=== PATIENT | female | born 1950 | race Caucasian/White ===

== ENCOUNTER 2017-01-10 15:06 | Emergency (ER) | payer MEDICARE, OTHER ==
[~2017-01-10] VITALS: Ht 165.1 cm; Wt 87.5 kg
[~2017-01-10 15:06] MED LIST: ERGO1CAP6 PO; GEMF600T3 PO; GLIP-115 PO; LEVO25TA6 PO; LOSA25TA9 PO; OMEG1CAP10 PO
[2017-01-10 15:50] VITALS: BP 184/86
== END 2017-01-10 22:00 | disposition left against medical advice (07) ==
LOC: ER 15:06
DX: R05 Cough (principal); Z53.21 Procedure and treatment not carried out due to patient leaving prior to being seen by health care provider
CPT/HCPCS: 71020; 93005

== ENCOUNTER → 2017-01-20 | Outpatient (CLI) | payer MEDICARE, OTHER ==
[2017-01-20 12:51] LABS: Basophils # (auto) 0 uL; Basophils % (auto) 0.5 % (0.0-2.0); DEFINITIVE VIEW TRANSMISSION; Eosinophils # (auto) 0.1 uL; Eosinophils % (auto) 1.7 % (0.0-7.0); Hematocrit 42.5 % (36.0-46.0); Hemoglobin 13.9 g/dL (12.2-16.2); Lymphocytes # (auto) 2.3 uL; Lymphocytes % (auto) 34.4 % (10.0-50.0); Mean Corpuscular Hemoglobin 25.4 pg (28.0-32.0); Mean Corpuscular Hgb Conc. 32.6 g/dL (32.0-36.0); Mean Corpuscular Volume 77.8 fL (80.0-100.0); Mean Platelet Volume 8.4 fL (7.4-10.4); Monocytes # (auto) 0.4 uL; Monocytes % (auto) 5.7 % (0.0-12.0); Neutrophils # (auto) 3.9 uL; Neutrophils % (auto) 57.7 % (37.0-80.0); Platelet Count (auto) 335 10^3/uL (140-450); Red Cell Distribution Width 13.8 % (11.6-16.0); White Blood Cell 6.7 10^3/uL (4.4-10.8)
[2017-01-20 13:17] LABS: BUN/Creatinine Ratio 19.5; Bilirubin, Total 0.4 mg/dL (0.2-1.0); Calcium 10.2 mg/dL (8.5-10.1); Potassium 4.3 mmol/L (3.5-5.1); Total Protein 8.5 g/dL (6.4-8.2)
== END | disposition home or self-care (01) ==
LOC: LAB 12:20
PROVIDERS: ATTEND Internal Medicine
DX: R10.9 Unspecified abdominal pain (principal)
CPT/HCPCS: 36415; 80053; 82150; 82607; 83036; 83690; 84439; 84443; 85025; 86141

== ENCOUNTER → 2017-09-12 | Outpatient (CLI) | payer MEDICARE, OTHER | END | disposition home or self-care (01) | LOC: XY 07:56 | PROVIDERS: ATTEND Internal Medicine | DX: R10.9 Unspecified abdominal pain (principal); R11.2 Nausea with vomiting, unspecified | CPT/HCPCS: 78264; A9541 ==

== ENCOUNTER 2017-10-13 09:41 | Inpatient (IN) | payer OTHER ==
[~2017-10-13] VITALS: Ht 165.1 cm; Wt 90.6 kg
[2017-10-13 10:34] LABS: Basophils # (auto) 0.1 uL; Eosinophils # (auto) 0 uL; Monocytes # (auto) 0.3 uL; Nucleated Red Blood Cells % 0.1 %; Platelet Count (auto) 310 10^3/uL (140-450)
[2017-10-13 10:38] LABS: Basophils % (auto) 1.2 % (0.0-2.0); Eosinophils % (auto) 0.4 % (0.0-7.0); Hematocrit 41.4 % (36.0-46.0); Hemoglobin 13.5 g/dL (12.2-16.2); Lymphocytes # (auto) 1.8 uL; Lymphocytes % (auto) 25.3 % (10.0-50.0); Mean Corpuscular Hemoglobin 25.6 pg (28.0-32.0); Mean Corpuscular Hgb Conc. 32.6 g/dL (32.0-36.0); Mean Corpuscular Volume 78.4 fL (80.0-100.0); Monocytes % (auto) 4.5 % (0.0-12.0); Neutrophils # (auto) 4.9 uL; Neutrophils % (auto) 68.6 % (37.0-80.0); Red Blood Cells 5.28 10^6/uL (4.0-5.20); Red Cell Distribution Width 13.5 % (11.8-14.3); White Blood Cell 7.2 10^3/uL (4.4-10.8)
[2017-10-13 10:59] LABS: Alanine Aminotransferase 31 U/L (13-56); Albumin 4.2 g/dL (3.4-5.0); Alkaline Phosphatase 79 U/L (45-117); Anion Gap 11 (5-15); Aspartate Aminotransferase 13 U/L (15-37); BUN/Creatinine Ratio 14.6; Bilirubin, Total 0.5 mg/dL (0.2-1.0); Blood Urea Nitrogen 18 mg/dL (7-18); Calcium 9.4 mg/dL (8.5-10.1); Carbon Dioxide 21 mmol/L (21-32); Chloride 104 mmol/L (98-107); GFR African American 56 mL/min; GFR Non-African American 46 mL/min; Glucose 303 mg/dL (74-106); Potassium 3.9 mmol/L (3.5-5.1); Sodium 136 mmol/L (136-145); Total Protein 8.7 g/dL (6.4-8.2)
[2017-10-13] MEDS ORDERED: SODIUM CHLORIDE 0.9% 1,000 ML IV ONE (11:24)
[2017-10-13] MEDS ORDERED: InsuLIN REG 1unit/0.01ml Soln (100units/ml) IV ONE (11:30)
[2017-10-13 12:06] LABS: Amylase 13 U/L (25-115); Lipase 127 U/L (73-393)
[2017-10-13] MEDS ORDERED: NITROGLYCERIN 0.4 MG SL TAB SL PRN (15:15)
[2017-10-13] MEDS ORDERED: PROMETHAZINE HCL 25 MG/ML 1ML IV PRN (15:15)
[2017-10-13] MEDS ORDERED: MORPHINE SULFATE 10 MG/ML INJ 1ML SDV IV PRN ×2 (15:15)
[2017-10-13] MEDS ORDERED: cefTRIAXone 1GM/10ml IVPUSH 10 ML IV ONE (15:15)
[2017-10-13] MEDS ORDERED: LORazepam 0.5 MG TAB PO PRN (15:15)
[2017-10-13] MEDS ORDERED: TEMAZEPAM 15 MG CAP PO PRN (15:15)
[2017-10-13] MEDS ORDERED: ACETAMINOPHEN 500 MG TAB PO PRN (15:15)
[2017-10-13] MEDS ORDERED: DEXTROSE (50%) 50ML SYRG IV PRN (15:15)
[2017-10-13] MEDS ORDERED: ONDANSETRON HCL 4 MG/2 ML VIAL IV ONE (16:15)
[2017-10-13] MEDS ORDERED: AMLO10TA2 PO (16:46)
[2017-10-13] MEDS ORDERED: GLIP-116 PO (16:46)
[2017-10-13] MEDS ORDERED: RANI150C11 PO (16:46)
[2017-10-13] MEDS ORDERED: LOSA100T27 PO (16:46)
[2017-10-13] MEDS ORDERED: ASPI-231 PO (16:46)
[2017-10-13] MEDS ORDERED: ESOM40CA39 PO (16:46)
[2017-10-13] MEDS ORDERED: DOCU-80 PO (16:46)
[2017-10-13] MEDS: GEMFIBROZIL 600 MG TAB PO SCH (17:00)
[2017-10-13] MEDS ORDERED: LOSARTAN POTASSIUM 50 MG TAB PO ONE (17:15)
[2017-10-13] MEDS: InsuLIN REG 1unit/0.01ml Soln (100units/ml) SC SCH ×2 (17:22→20:00)
[2017-10-13] MEDS: SODIUM CHLORIDE 0.9% 1,000 ML IV SCH (17:22)
[2017-10-13] MEDS: FAMOTIDINE (10MG/ML) 2ML VL IV SCH (17:22)
[2017-10-13] MEDS: glipiZIDE 5 MG TAB PO SCH (17:23)
[2017-10-13] MEDS: ACCU-CHEK COMFORT CURVE STRIP VI SCH ×2 (17:23→20:00)
[2017-10-13] MEDS: OMEGA ACID ETHYL ESTERS PO SCH (17:46)
[2017-10-13 20:28] VITALS: BP 144/69
[2017-10-13] MEDS: HYDROcodone-ACET 5/325MG TAB PO PRN (23:41)
[2017-10-14] MEDS: ACCU-CHEK COMFORT CURVE STRIP VI SCH ×6 (00:05→20:10)
[2017-10-14] MEDS: InsuLIN REG 1unit/0.01ml Soln (100units/ml) SC SCH ×6 (00:15→20:11)
[2017-10-14] MEDS: SODIUM CHLORIDE 0.9% 1,000 ML IV SCH ×3 (01:46→20:11)
[2017-10-14] MEDS: FAMOTIDINE (10MG/ML) 2ML VL IV SCH ×2 (04:05→16:44)
[2017-10-14 05:00] VITALS: BP 107/61
[2017-10-14 05:55] LABS: Eosinophils # (auto) 0.1 uL; Hemoglobin 12.1 g/dL (12.2-16.2); Mean Corpuscular Volume 78.5 fL (80.0-100.0); Monocytes # (auto) 0.4 uL; Nucleated Red Blood Cells % 0.1 %; Platelet Count (auto) 262 10^3/uL (140-450)
[2017-10-14 05:58] LABS: Basophils # (auto) 0 uL; Basophils % (auto) 0.6 % (0.0-2.0); Hematocrit 36.9 % (36.0-46.0); Lymphocytes # (auto) 2.3 uL; Lymphocytes % (auto) 32.8 % (10.0-50.0); Mean Corpuscular Hemoglobin 25.7 pg (28.0-32.0); Mean Corpuscular Hgb Conc. 32.8 g/dL (32.0-36.0); Monocytes % (auto) 6.1 % (0.0-12.0); Neutrophils # (auto) 4.2 uL; Neutrophils % (auto) 59.5 % (37.0-80.0); Red Blood Cells 4.71 10^6/uL (4.0-5.20); Red Cell Distribution Width 13.7 % (11.8-14.3); White Blood Cell 7.1 10^3/uL (4.4-10.8)
[2017-10-14 06:21] LABS: Potassium 3.5 mmol/L (3.5-5.1)
[2017-10-14 06:23] LABS: Cholesterol 245 mg/dL (< 200); HDL Cholesterol 27 mg/dL (40-59); LDL Cholesterol 178 mg/dL (< 100); Triglycerides 222 mg/dL (< 150)
[2017-10-14 06:26] LABS: Albumin 3.3 g/dL (3.4-5.0); BUN/Creatinine Ratio 14.4; Calcium 8.8 mg/dL (8.5-10.1)
[2017-10-14 06:28] LABS: Bilirubin, Total 0.3 mg/dL (0.2-1.0)
[2017-10-14] MEDS: LEVOTHYROXINE SODIUM 25 MCG TAB PO SCH (06:50)
[2017-10-14] MEDS: glipiZIDE 5 MG TAB PO SCH ×2 (06:50→16:51)
[2017-10-14] MEDS: GEMFIBROZIL 600 MG TAB PO SCH ×3 (06:50→17:00)
[2017-10-14 07:25] VITALS: BP 133/78
[2017-10-14] MEDS: OMEGA ACID ETHYL ESTERS PO SCH ×2 (08:00→18:00)
[2017-10-14] MEDS: cefTRIAXone 1GM/10ml IVPUSH 10 ML IV SCH (08:23)
[2017-10-14] MEDS: LOSARTAN POTASSIUM 50 MG TAB PO SCH (08:24)
[2017-10-14] MEDS: HYDROcodone-ACET 5/325MG TAB PO PRN (10:45)
[2017-10-14 11:50] VITALS: BP 138/85
[2017-10-14 16:40] VITALS: BP 134/81
[2017-10-14] MEDS: INSULIN 70/30 1unit/0.01ml Susp (100units/ml) SC SCH (18:00)
[2017-10-14 22:00] VITALS: BP 154/78
[2017-10-15] MEDS: ACCU-CHEK COMFORT CURVE STRIP VI SCH ×4 (00:04→12:23)
[2017-10-15] MEDS: FAMOTIDINE (10MG/ML) 2ML VL IV SCH ×2 (03:15→13:43)
[2017-10-15] MEDS: InsuLIN REG 1unit/0.01ml Soln (100units/ml) SC SCH ×4 (04:00→12:23)
[2017-10-15] MEDS: HYDROcodone-ACET 5/325MG TAB PO PRN (04:02)
[2017-10-15 05:00] VITALS: BP 141/70
[2017-10-15] MEDS: SODIUM CHLORIDE 0.9% 1,000 ML IV SCH ×2 (06:05→09:44)
[2017-10-15] MEDS: glipiZIDE 5 MG TAB PO SCH (06:05)
[2017-10-15] MEDS: GEMFIBROZIL 600 MG TAB PO SCH (06:05)
[2017-10-15] MEDS: LEVOTHYROXINE SODIUM 25 MCG TAB PO SCH (06:05)
[2017-10-15] MEDS ORDERED: ceFAZolin 1GM/50ML 50 ML IV ONE (07:51)
[2017-10-15 07:56] LABS: Basophils # (auto) 0.1 uL; Eosinophils # (auto) 0.1 uL; Eosinophils % (auto) 2.3 % (0.0-7.0); Lymphocytes # (auto) 2.1 uL; Monocytes # (auto) 0.3 uL; Nucleated Red Blood Cells % 0.1 %
[2017-10-15 07:59] LABS: Basophils % (auto) 0.8 % (0.0-2.0); Hematocrit 37.5 % (36.0-46.0); Hemoglobin 12.2 g/dL (12.2-16.2); Lymphocytes % (auto) 32.4 % (10.0-50.0); Mean Corpuscular Hemoglobin 25.5 pg (28.0-32.0); Mean Corpuscular Hgb Conc. 32.6 g/dL (32.0-36.0); Monocytes % (auto) 4.6 % (0.0-12.0); Neutrophils # (auto) 3.9 uL; Neutrophils % (auto) 59.9 % (37.0-80.0); Platelet Count (auto) 251 10^3/uL (140-450); Red Blood Cells 4.81 10^6/uL (4.0-5.20); Red Cell Distribution Width 13.4 % (11.8-14.3); White Blood Cell 6.5 10^3/uL (4.4-10.8)
[2017-10-15] MEDS: OMEGA ACID ETHYL ESTERS PO SCH (08:00)
[2017-10-15] MEDS ORDERED: SUCCINYLCHOLINE CHLORIDE 20 MG/ML 10ML VIAL IV ONE (08:01)
[2017-10-15] MEDS ORDERED: LIDOCAINE 1% HCL (LOCAL ANESTH.) INJ 20ML MDV ONE (08:01)
[2017-10-15] MEDS ORDERED: MIDAZOLAM HCL 1MG/1ML-2 ML VIAL ONE (08:04)
[2017-10-15] MEDS ORDERED: METOCLOPRAMIDE HCL 5MG/ml INJ 2ml VIAL ONE (08:04)
[2017-10-15] MEDS ORDERED: PROPOFOL 10 MG/ML 20 ML IV ONE (08:07)
[2017-10-15] MEDS ORDERED: diphenhdrAMINE HCL 50 MG/1 ML VL ONE (08:08)
[2017-10-15] MEDS ORDERED: KETAMINE HCL 1 ML ONE (08:08)
[2017-10-15 08:13] LABS: Calcium 8.8 mg/dL (8.5-10.1); Potassium 3.6 mmol/L (3.5-5.1)
[2017-10-15 08:16] LABS: BUN/Creatinine Ratio 13.9
[2017-10-15 09:00] VITALS: BP 146/81
[2017-10-15] MEDS ORDERED: hydrALAZINE HCL 20 MG/ML VL IV PRN (09:00)
[2017-10-15] MEDS ORDERED: ONDANSETRON HCL 4 MG/2 ML VIAL IV ONE (09:00)
[2017-10-15] MEDS ORDERED: NALOXONE HCL 0.4 MG/ML VIAL IV PRN (09:00)
[2017-10-15] MEDS ORDERED: ACCU-CHEK COMFORT CURVE STRIP VI ONE (09:00)
[2017-10-15] MEDS ORDERED: HYDROmorphone HCL 2 MG/ML VL IV PRN (09:00)
[2017-10-15] MEDS: INSULIN 70/30 1unit/0.01ml Susp (100units/ml) SC SCH (10:03)
[2017-10-15] MEDS: cefTRIAXone 1GM/10ml IVPUSH 10 ML IV SCH (10:04)
[2017-10-15] MEDS: LOSARTAN POTASSIUM 50 MG TAB PO SCH (10:05)
[2017-10-15 12:48] VITALS: BP 140/79
[2017-10-15 13:32] VITALS: BP 158/69
[2017-10-28] MEDS ORDERED: INSUINJ49 SC (15:24)
== END 2017-10-15 16:15 | disposition home or self-care (01) | DRG 694 ==
LOC: ER 09:41 → TELE 09:42 → TELE-WESTW 19:41
PROVIDERS: ADMIT Internal Medicine; ATTEND Family Medicine
PROC: 0T768DZ Dilation of Right Ureter with Intraluminal Device, Via Natural or Artificial Opening Endoscopic (ICD-10-PCS; principal; 2017-10-15 08:04)
DX: N13.2 Hydronephrosis with renal and ureteral calculous obstruction (principal); E11.65 Type 2 diabetes mellitus with hyperglycemia; K76.0 Fatty (change of) liver, not elsewhere classified; R16.0 Hepatomegaly, not elsewhere classified; K80.20 Calculus of gallbladder without cholecystitis without obstruction; I10 Essential (primary) hypertension; K40.20 Bilateral inguinal hernia, without obstruction or gangrene, not specified as recurrent; K42.9 Umbilical hernia without obstruction or gangrene; Z88.2 Allergy status to sulfonamides; Z82.3 Family history of stroke; Z82.49 Family history of ischemic heart disease and other diseases of the circulatory system; Z83.3 Family history of diabetes mellitus; Z85.3 Personal history of malignant neoplasm of breast; Z85.828 Personal history of other malignant neoplasm of skin; Z87.442 Personal history of urinary calculi; Z79.84 Long term (current) use of oral hypoglycemic drugs; Z90.12 Acquired absence of left breast and nipple; Z79.899 Other long term (current) drug therapy
CPT/HCPCS: 36415; 52332; 71045; 74018; 74176; 76000; 80048; 80053; 80061; 82150; 82962; 83036; 83690; 84484; 85025; 87086; 93005; 96361; 96374; 96375; J0330; J0690; J1815; J2001; J2250; J2405; J2704; J3490

== ENCOUNTER → 2017-10-19 | Outpatient (CLI) | payer OTHER ==
[~2017-10-19] MED LIST changes: +AMLO10TA2 PO; +ASPI-231 PO; +DOCU-80 PO; +ESOM40CA39 PO; -GEMF600T3 PO; -GLIP-115 PO; +GLIP-116 PO; +INSUINJ49 SC; +LOSA100T27 PO; -LOSA25TA9 PO; +RANI150C11 PO
[2017-10-19 16:45] LABS: Basophils # (auto) 0.1 uL; Basophils % (auto) 1.4 % (0.0-2.0); Hematocrit 40.9 % (36.0-46.0); Monocytes # (auto) 0.5 uL; Red Cell Distribution Width 13.7 % (11.8-14.3)
[2017-10-19 16:49] LABS: Albumin 4.1 g/dL (3.4-5.0); BUN/Creatinine Ratio 17.7; Bilirubin, Total 0.4 mg/dL (0.2-1.0); Calcium 9.4 mg/dL (8.5-10.1); Eosinophils # (auto) 0.3 uL; Eosinophils % (auto) 3.1 % (0.0-7.0); Hemoglobin 13.3 g/dL (12.2-16.2); Lymphocytes # (auto) 2.7 uL; Lymphocytes % (auto) 31.7 % (10.0-50.0); Mean Corpuscular Hemoglobin 25.5 pg (28.0-32.0); Mean Corpuscular Hgb Conc. 32.4 g/dL (32.0-36.0); Mean Corpuscular Volume 78.5 fL (80.0-100.0); Monocytes % (auto) 5.8 % (0.0-12.0); Platelet Count (auto) 321 10^3/uL (140-450); Potassium 3.8 mmol/L (3.5-5.1); Total Protein 8.5 g/dL (6.4-8.2); White Blood Cell 8.6 10^3/uL (4.4-10.8)
== END | disposition home or self-care (01) ==
LOC: LAB 15:57
PROVIDERS: ATTEND Internal Medicine
DX: E11.9 Type 2 diabetes mellitus without complications (principal); R10.9 Unspecified abdominal pain; Z96.0 Presence of urogenital implants
CPT/HCPCS: 36415; 80053; 85025; 87086

== ENCOUNTER 2017-10-31 06:04 | Day surgery (SDC) | payer OTHER ==
[2017-10-28 10:28] LABS: Basophils # (auto) 0.1 uL; Eosinophils # (auto) 0.2 uL; Monocytes # (auto) 0.4 uL; Nucleated Red Blood Cells % 0.1 %; Red Cell Distribution Width 13.6 % (11.8-14.3); White Blood Cell 6.8 10^3/uL (4.4-10.8)
[2017-10-28 10:29] LABS: Basophils % (auto) 1.2 % (0.0-2.0); Eosinophils % (auto) 2.9 % (0.0-7.0); Hematocrit 41.1 % (36.0-46.0); Hemoglobin 13.5 g/dL (12.2-16.2); Lymphocytes % (auto) 29.9 % (10.0-50.0); Mean Corpuscular Hemoglobin 25.8 pg (28.0-32.0); Mean Corpuscular Hgb Conc. 32.7 g/dL (32.0-36.0); Mean Corpuscular Volume 78.7 fL (80.0-100.0); Monocytes % (auto) 6.2 % (0.0-12.0); Neutrophils # (auto) 4.1 uL; Neutrophils % (auto) 59.8 % (37.0-80.0); Platelet Count (auto) 343 10^3/uL (140-450); Red Blood Cells 5.22 10^6/uL (4.0-5.20)
[2017-10-28 10:40] LABS: INR 0.92 (0.9-1.15); Partial Thromboplastin Time 25.5 sec (22.64-33.71)
[2017-10-28 10:47] LABS: Albumin 4.1 g/dL (3.4-5.0); BUN/Creatinine Ratio 15.7; Bilirubin, Total 0.4 mg/dL (0.2-1.0); Calcium 9.5 mg/dL (8.5-10.1); Potassium 4.1 mmol/L (3.5-5.1); Total Protein 8.6 g/dL (6.4-8.2)
[2017-10-28 10:53] LABS: Urine Bacteria FEW /hpf (None Seen); Urine Blood 3+ /uL (Negative); Urine Specific Gravity 1.017 (1.001-1.035); Urine WBC 54 /hpf (0 - 5)
[~2017-10-31] VITALS: Ht 165.1 cm; Wt 84.8 kg
[~2017-10-31 06:04] MED LIST changes: -ASPI-231 PO; -DOCU-80 PO; -ERGO1CAP6 PO; -ESOM40CA39 PO; -OMEG1CAP10 PO; -RANI150C11 PO
[2017-10-31] MEDS ORDERED: SODIUM CHLORIDE LOCK 10 ML ONE (07:18)
[2017-10-31] MEDS ORDERED: PROPOFOL 10 MG/ML 20 ML IV ONE ×2 (07:18→08:17)
[2017-10-31] MEDS ORDERED: MIDAZOLAM HCL 1MG/1ML-2 ML VIAL ONE (07:18)
[2017-10-31] MEDS ORDERED: fentaNYL CITRATE 100 MCG/2 ML VL ONE (07:18)
[2017-10-31] MEDS ORDERED: ONDANSETRON HCL 4 MG/2 ML VIAL ONE (07:18)
[2017-10-31] MEDS ORDERED: ceFAZolin 1GM/50ML 50 ML IV ONE (07:21)
[2017-10-31] MEDS ORDERED: HYDROmorphone HCL 2 MG/ML VL IV PRN (08:00)
[2017-10-31] MEDS ORDERED: METOCLOPRAMIDE HCL 5MG/ml INJ 2ml VIAL IV ONE (08:00)
[2017-10-31] MEDS ORDERED: ACCU-CHEK COMFORT CURVE STRIP VI ONE (08:00)
[2017-10-31 09:05] VITALS: BP 161/62
== END 2017-10-31 09:36 | disposition home or self-care (01) ==
LOC: SUR 06:04
PROVIDERS: ATTEND Urology
DX: N20.1 Calculus of ureter (principal); T83.192A Other mechanical complication of indwelling ureteral stent, initial encounter; D69.6 Thrombocytopenia, unspecified; E74.4 Disorders of pyruvate metabolism and gluconeogenesis; E11.22 Type 2 diabetes mellitus with diabetic chronic kidney disease; I12.9 Hypertensive chronic kidney disease with stage 1 through stage 4 chronic kidney disease, or unspecified chronic kidney disease; N18.2 Chronic kidney disease, stage 2 (mild); K21.9 Gastro-esophageal reflux disease without esophagitis; E66.9 Obesity, unspecified; Z68.31 Body mass index [BMI] 31.0-31.9, adult; E03.9 Hypothyroidism, unspecified; Z88.2 Allergy status to sulfonamides; Z88.8 Allergy status to other drugs, medicaments and biological substances
CPT/HCPCS: 36415; 50590; 52310; 80053; 81001; 82962; 85025; 85610; 85730; J0690; J2250; J2405; J2704; J3010; J7030

== ENCOUNTER 2018-05-28 01:36 | Inpatient (IN) | payer OTHER ==
[~2018-05-28] VITALS: Ht 165.1 cm; Wt 87.9 kg
[2018-05-28 02:20] LABS: Urine Bacteria FEW /hpf (None Seen); Urine Blood Negative /uL (Negative); Urine Specific Gravity 1.009 (1.001-1.035); Urine WBC 11 /hpf (0 - 5); Urine WBC Clumps PRESENT /hpf (None Seen)
[2018-05-28 02:30] LABS: Basophils # (auto) 0.1 uL; Basophils % (auto) 0.9 % (0.0-2.0); Eosinophils # (auto) 0.1 uL; Monocytes # (auto) 0.5 uL; White Blood Cell 7.6 10^3/uL (4.4-10.8)
[2018-05-28 02:31] LABS: Eosinophils % (auto) 1.5 % (0.0-7.0); Hematocrit 36.6 % (36.0-46.0); Hemoglobin 11.8 g/dL (12.2-16.2); Lymphocytes % (auto) 25.7 % (10.0-50.0); Mean Corpuscular Hemoglobin 24.7 pg (28.0-32.0); Mean Corpuscular Hgb Conc. 32.2 g/dL (32.0-36.0); Mean Corpuscular Volume 76.7 fL (80.0-100.0); Monocytes % (auto) 6.4 % (0.0-12.0); Neutrophils % (auto) 65.5 % (37.0-80.0); Platelet Count (auto) 243 10^3/uL (140-450); Red Blood Cells 4.77 10^6/uL (4.0-5.20); Red Cell Distribution Width 14.1 % (11.8-14.3)
[2018-05-28 02:43] LABS: INR 0.92 (0.9-1.15); Partial Thromboplastin Time 27.5 sec (23.78-33.04); Prothrombin Time 9.9 sec (9.27-12.13)
[2018-05-28 02:45] LABS: Alanine Aminotransferase 22 U/L (13-56); Albumin 3.2 g/dL (3.4-5.0); Anion Gap 10 (5-15); Aspartate Aminotransferase 14 U/L (15-37); BUN/Creatinine Ratio 15.5; Blood Urea Nitrogen 22 mg/dL (7-18); Calcium 8.2 mg/dL (8.5-10.1); Carbon Dioxide 22 mmol/L (21-32); Chloride 108 mmol/L (98-107); GFR African American 47 mL/min; GFR Non-African American 39 mL/min; Glucose 284 mg/dL (74-106); Potassium 3.9 mmol/L (3.5-5.1); Sodium 140 mmol/L (136-145)
[2018-05-28 02:50] LABS: Alkaline Phosphatase 70 U/L (45-117); Bilirubin, Total 0.2 mg/dL (0.2-1.0)
[2018-05-28] MEDS ORDERED: MORPHINE SULF INJ 2 MG/ML SYRINGE 1ML IV ONE (04:15)
[2018-05-28] MEDS ORDERED: ONDANSETRON ODT 4 MG TAB PO ONE (04:15)
[2018-05-28] MEDS ORDERED: HYDROcodone-ACET 5/325MG TAB PO ONE (04:30)
[2018-05-28] MEDS ORDERED: cefTRIAXone 1GM/10ml IVPUSH 10 ML IV ONE (05:45)
[2018-05-28] MEDS ORDERED: DEXTROSE (50%) 50ML SYRG IV PRN (06:30)
[2018-05-28] MEDS ORDERED: LORazepam 0.5 MG TAB PO PRN (06:30)
[2018-05-28] MEDS ORDERED: TEMAZEPAM 15 MG CAP PO PRN (06:30)
[2018-05-28] MEDS ORDERED: HYDROcodone-ACET 5/325MG TAB PO PRN (06:30)
[2018-05-28] MEDS ORDERED: ACETAMINOPHEN 500 MG TAB PO PRN (06:30)
[2018-05-28] MEDS ORDERED: ONDANSETRON HCL 4 MG/2 ML VIAL IV PRN (06:30)
[2018-05-28] MEDS ORDERED: LEVOTHYROXINE SODIUM 50 MCG TAB PO SCH (07:00)
[2018-05-28] MEDS ORDERED: NITROGLYCERIN 0.4 MG SL TAB SL PRN (07:15)
[2018-05-28] MEDS ORDERED: MORPHINE SULF INJ 2 MG/ML SYRINGE 1ML IV PRN (07:15)
[2018-05-28] MEDS: ACCU-CHEK COMFORT CURVE STRIP VI SCH ×4 (07:58→23:02)
[2018-05-28] MEDS: InsuLIN REG 1unit/0.01ml Soln (100units/ml) SC SCH ×3 (08:07→17:51)
[2018-05-28 10:00] VITALS: BP 154/76
[2018-05-28] MEDS ORDERED: LOSARTAN POTASSIUM 50 MG TAB PO SCH (10:00)
[2018-05-28] MEDS ORDERED: INSULIN LANTUS (GLARGINE) 1 /0.01ml (100units/ml) SC SCH (10:00)
[2018-05-28] MEDS: METOPROLOL TARTRATE 25 MG TAB PO SCH ×2 (10:43→23:01)
[2018-05-28 12:47] VITALS: BP 150/74
[2018-05-28] MEDS ORDERED: PNEUMOCOCCAL VACC POLYS 25 MCG/0.5 ML VIAL IM ONE (14:30)
[2018-05-28 17:01] VITALS: BP 151/78
[2018-05-28 22:00] VITALS: BP 159/80
[2018-05-28] MEDS ORDERED: InsuLIN REG 1unit/0.01ml Soln (100units/ml) SC SCH (22:00)
[2018-05-28] MEDS ORDERED: ATORVASTATIN 20 MG TAB PO SCH (22:00)
[2018-05-29 00:19] VITALS: BP 134/71
[2018-05-29] MEDS ORDERED: cefTRIAXone 1GM/10ml IVPUSH 10 ML IV SCH (09:00)
== END 2018-05-29 00:58 | disposition short-term general hospital (02) | DRG 206 ==
LOC: EDBD 01:36 → ER 01:39 → TELE 01:40 → TELE-WESTW 10:12
PROVIDERS: ADMIT Nurse Practitioner Family; ATTEND Nurse Practitioner Family
DX: M94.0 Chondrocostal junction syndrome [Tietze] (principal); E44.1 Mild protein-calorie malnutrition; N30.00 Acute cystitis without hematuria; D64.9 Anemia, unspecified; E03.9 Hypothyroidism, unspecified; E11.22 Type 2 diabetes mellitus with diabetic chronic kidney disease; E11.65 Type 2 diabetes mellitus with hyperglycemia; Z68.32 Body mass index [BMI] 32.0-32.9, adult; F41.9 Anxiety disorder, unspecified; I12.9 Hypertensive chronic kidney disease with stage 1 through stage 4 chronic kidney disease, or unspecified chronic kidney disease; N18.9 Chronic kidney disease, unspecified; Z79.4 Long term (current) use of insulin; Z82.3 Family history of stroke; Z82.49 Family history of ischemic heart disease and other diseases of the circulatory system; Z85.3 Personal history of malignant neoplasm of breast; Z87.442 Personal history of urinary calculi; Z83.3 Family history of diabetes mellitus; Z90.49 Acquired absence of other specified parts of digestive tract
CPT/HCPCS: 36415; 71045; 80053; 81001; 82962; 83036; 83735; 83880; 84484; 85025; 85610; 85730; 93005; 94761; 96372; 96374; J0696; J1815